=== PATIENT | male | born 1945 | race Native Hawaiian/Other Pacific Islander ===

== ENCOUNTER 2018-12-11 08:24 | Outpatient (CLI) | payer OTHER | END 2018-12-11 08:25 | disposition home or self-care (01) | LOC: C.LAB 08:24 | DX: E11.9 Type 2 diabetes mellitus without complications (principal); E03.9 Hypothyroidism, unspecified; E55.9 Vitamin D deficiency, unspecified; D50.9 Iron deficiency anemia, unspecified; D51.9 Vitamin B12 deficiency anemia, unspecified; N42.9 Disorder of prostate, unspecified; E78.5 Hyperlipidemia, unspecified ==

== ENCOUNTER 2019-03-18 07:49 | Outpatient (CLI) | payer OTHER | END 2019-03-18 07:50 | disposition home or self-care (01) | LOC: C.LAB 07:49 | DX: E11.9 Type 2 diabetes mellitus without complications (principal); E03.9 Hypothyroidism, unspecified; D51.9 Vitamin B12 deficiency anemia, unspecified; E55.9 Vitamin D deficiency, unspecified; D50.9 Iron deficiency anemia, unspecified; N42.9 Disorder of prostate, unspecified ==

== ENCOUNTER 2019-03-19 07:23 | Outpatient (CLI) | payer OTHER | END 2019-03-19 07:24 | disposition home or self-care (01) | LOC: C.CARD 07:23 | DX: I10 Essential (primary) hypertension (principal); R06.02 Shortness of breath; I34.0 Nonrheumatic mitral (valve) insufficiency ==